=== PATIENT | male | born 1985 | race African-American/Black ===

== ENCOUNTER 2019-03-02 04:34 | Emergency (ER) | payer SELFPAY ==
[2019-03-02] MEDS: HYDROCODONE/APAP (5/325) TAB PO (05:06)
[2019-03-02 05:09] LABS: URINE BLOOD (Dip) POC Negative (NEGATIVE); URINE GLUCOSE (Dip) POC Negative (NEGATIVE); URINE KETONES (Dip) POC Negative (NEGATIVE); URINE LEUKOCYTE EST (Dip) POC Negative (NEGATIVE); URINE NITRITE (Dip) POC Negative (NEGATIVE); URINE TOTAL PROTEIN POC Negative (NEGATIVE)
[2019-03-02] MEDS: CEFTRIAXONE 250 MG INJ IM (07:38)
[2019-03-02] MEDS: LIDOCAINE 1% (MPF) 5 ML VIAL INJ (07:38)
[2019-03-02] MEDS: AZITHROMYCIN 500 MG TAB PO (07:38)
== END 2019-03-02 07:53 | disposition home or self-care (01) ==
LOC: FTE 07:53
DX: N45.1 Epididymitis (principal); F17.210 Nicotine dependence, cigarettes, uncomplicated
CPT/HCPCS: 76870; 81003; 96372; 99285-25